=== PATIENT | female | born 1980 | race Caucasian/White ===

== ENCOUNTER 2017-08-18 12:18 | Day surgery (SDC) | payer OTHER, SELFPAY ==
[2017-08-18] VITALS (9 sets, daily range): BP systolic 116–133; BP diastolic 55–83; PULSE 81–112; RESP 14–18; TEMP 36.2–37.1; O2SAT 93–98; BMI 28.2
[2017-08-18] MEDS: Cefazolin 2 GM in 0.9% Normal Saline 100 ML IV (14:15)
[2017-08-18] MEDS: Bupivacaine Mpf 0.5% 30 ML VIAL (14:44)
--- NOTE | 2017-08-18 14:51 | PCM.IMDPSTOP ---
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 ACL graft intact Surgery/Procedure Performed:: Trephination medial meniscus left Description of Surgical Findings:: see op note Estimated Blood Loss: 5cc Specimen's removed: none Type of Anesthesia:: General ASA Class: ASA2 Mod Systematic Disease - Admit VTE Documentation VTE Present on Admission: No VTE Mechan Device Prophylaxis: SCD's, Thigh High PRIMO Hose VTE Pharm Prophylaxis ordered?: Yes
--- NOTE | 2017-08-18 15:29 | OP.PN_ITS ---
Immediate Post-Op Note Date of Procedure: 08/18/17 Primary Surgeon/Physician: Quentin Betancur counter waiter: none Pre-Operative Diagnosis: MMT,possible ACL tear left Post-Operative Diagnosis: Undersurface MMT. ACL graft intact Surgery/Procedure Performed:: Trephination medial meniscus left Description of Surgical Findings:: see op note Estimated Blood Loss: 5cc Specimen's removed: none Type of Anesthesia:: General ASA Class: ASA2 Mod Systematic Disease - Admit VTE Documentation VTE Present on Admission: No VTE Mechan Device Prophylaxis: SCD's, Thigh High PRIMO Hose VTE Pharm Prophylaxis ordered?: Yes
== END 2017-08-18 17:25 | disposition home or self-care (01) ==
LOC: SDC 12:19
PROVIDERS: Family Provider Nurse Practitioner Family; PCP Nurse Practitioner Family; Visit Provider Orthopaedic Surgery
PROC: (CPT 29888; principal; 2017-08-18 13:55)
DX: S83.242A Other tear of medial meniscus, current injury, left knee, initial encounter (principal); S83.92XA Sprain of unspecified site of left knee, initial encounter; W01.0XXA Fall on same level from slipping, tripping and stumbling without subsequent striking against object, initial encounter; Y93.9 Activity, unspecified; Y92.89 Other specified places as the place of occurrence of the external cause; Y99.0 Civilian activity done for income or pay; J45.909 Unspecified asthma, uncomplicated
CPT/HCPCS: 29881; J7120; J2405

== ENCOUNTER → 2023-01-30 | Outpatient (CLI) | payer OTHER, SELFPAY ==
--- NOTE | 2023-01-30 12:32 | RAD_ITS ---
STUDY: X-RAY - PARANASAL SINUSES REASON FOR EXAM: Female, 42 years old. SWELLING TRAUMA TECHNIQUE: 3 view(s) of the paranasal sinuses were obtained. COMPARISON: None. FINDINGS: Normal visualized frontal, maxillary, ethmoidal and sphenoid sinuses. Normal visualized facial bones. The soft tissue structures are unremarkable. RAD/Sinuses min 3 Views IMPRESSION: Normal x-rays of the paranasal sinuses. Electronically Signed: Javon Santos MD at 13:21 EDT ,
== END | disposition home or self-care (01) ==
LOC: RAD 12:25
PROVIDERS: PCP Nurse Practitioner Family; Referring Provider Nurse Practitioner Family; Visit Provider Nurse Practitioner Family
DX: J34.89 Other specified disorders of nose and nasal sinuses (principal); H57.89 Other specified disorders of eye and adnexa
CPT/HCPCS: 70220

== ENCOUNTER → 2023-12-05 | Outpatient (CLI) | payer OTHER, SELFPAY ==
--- NOTE | 2023-12-05 10:24 | RAD_ITS ---
STUDY: X-RAY - LEFT KNEE REASON FOR EXAM: Female, 43 years old. Left knee pain following a twisting injury. TECHNIQUE: 4 view(s) of the knee. COMPARISON: None. FINDINGS: Normal visualized distal femur. There is evidence of prior anterior cruciate ligament repair. Normal proximal tibiofibular articulation. Normal medial femorotibial compartment. Normal lateral femorotibial compartment. Normal patellofemoral articulation. Minimal joint effusion. RAD/Knee 4 or More Views IMPRESSION: Evidence of prior anterior cruciate ligament repair. Minimal joint effusion. Electronically Signed: Javon Santos MD at 10:43 EDT ,
== END | disposition home or self-care (01) ==
LOC: MTRAD 10:18
PROVIDERS: PCP Nurse Practitioner Family; Referring Provider Physician Assistant Surgical; Visit Provider Physician Assistant Surgical
DX: S86.912A Strain of unspecified muscle(s) and tendon(s) at lower leg level, left leg, initial encounter (principal)
CPT/HCPCS: 73564

== ENCOUNTER 2024-04-26 17:30 | Outpatient (RCR) | payer OTHER, SELFPAY ==
--- NOTE | 2024-01-28 11:32 | HP.PTEVAL_ITS ---
Patient's Visit Information Visit Information Visit Information: MARY MCKENZIE is a 43 year old F referred to Physical Therapy by Dr. Charles Montes De Oca MD with a diagnosis of L medial meniscal tear. Date of Evaluation: 01/27/24 Physical Therapist: Tuan Shultz DPT Visit Plan Frequency: 3x /Week Duration: 6 Weeks Plan: 1) Start with ROM progressing end ranges as tolerated. 2) edema control with vaso, may use IFC if needed for pain control. 3) quad/hip strengthening initially in [place] progressing to [place] as tolerated. Subjective Subjective: Pt. is here today for her initial evaluation with diagnosis of L meniscal tear. Pt. reports ~2 months ago she tripped over a wheel at work and felt a pop in her knee. She has a history of L ACL, PCL and meniscal reconstruction as well. Pt. was recommended to trial conservative treatment due to where tear is at. Pt. is no longer using her brace and tolerated working well. She is able to sit a decent amount. She is on restrictions for no twisting, light lifting, and to sit as much as possible. Pt. denies N/T. Pt. has increased pain with walking, stairs, squatting and twisting. Pt. has been compliant. She is icing daily. Pt. is hopeful to reduce symptoms in order to complete all work duties without increase in symptoms. Pain R knee: Pain Intensity (Out of 10): 3 Pain Intensity Range: 2 and 6 Objective Objective: POSTURE: Pt. has slight knee flexion during stance phase, slight increased Wt. shift to R side. PALPATION: pt. has some medial joint line tenderness and posterior aspect as well. NEURO: Normal sensation and normal DTR of BLEs. Pt. is able to rise on heels and toes. ROM: L knee AROM: 0-10-84deg, PROM: 0-5-102deg. MMT: RLE: ankle 5/5 throughout; knee: ext 43.5#, flexion 31.8#; hip: flexion 23.1#, abd 31.8#. LLE: ankle 5/5 throughout; knee: ext 18.9# increase NW, flexion 17.8# increase NW; hip: flexion 28.8#, abd 25.1# GAIT: Pt. ambulates with slight bend L knee during stance phase. Adequate knee flexion during swing. Slight antalgic pattern. STAIRS: step to pattern only with use of 1 HR. Balance/Special Test Scores Lower Extremity Functional Score: 36 Goals Goal 1:: LTG: Pt. to be I with HEP. Goal Time Frame: 4-6 Weeks Goal 2:: STG: Pt. to have increased L knee ROM to 0-0-125deg. Goal Time Frame: 2-4 Weeks Goal 3:: STG: pt. to ambulate with normal gait pattern without increase in L knee pain. Goal Time Frame: 2-4 Weeks Goal 4:: LTG: Pt. to have symmetrical strength between BLEs. Goal Time Frame: 4-6 Weeks Goal 5:: STG: Pt. to have symmetrical girth at mid patella indicating decreased L knee edema. Goal Time Frame: 2-4 Weeks Goal 6:: LTG: Pt. to negotiate steps with reciprocal pattern without use of HR and no increase in L knee pain. Goal Time Frame: 4-6 Weeks Rehabilitation Potential Physical Therapy Diagnosis: Pt. has signs and symptoms consistent with L medial meniscal tear. Pt. has marked subsequent hypomobility, weakness, difficulty with walking and increased pain. Pt. would benefit from PT to address the above limitations progressing back to all recreational and work activities without limitations. Rehabilitation Potential: Good Anticipated Interventions Patient/Client Instruction: Educate patient on: Condition, Plan of Care, Risk Factors and Benefits of Fitness Program For the Purpose of:: To improve self management, To prevent re-injury, To improve ability to perform tasks related to life management and To improve tolerance to ADL's Therapeutic Exercise to Include: Strength training, Power training, Endurance training, Body mechanics, Postural training, Flexibilty training, Gait and locomotor training, Passive ROM and Active ROM For the Purpose of:: To decrease pain, To increase ROM, To improve nutrient delivery to tissue, To increase oxygenation perfusion, To improve muscle performance and motor function, To improve ability to perform ADL's, To increase tolerance to activity/condition/position, To improve performance and independence with ADL's, To decrease level of supervision to perform tasks, To improve gait and locomotor functions, To improve health of tissue, To decrease soft tissue restriction and To increase flexibility/ROM Other electric stimulation: Yes Cryotherapy (ice pack, ice massage): Yes Ultrasound (thermal/non thermal): Yes Vasopneumatic device: Yes For the Purpose of:: To decrease pain, To decrease swelling/inflammation and To improve nutrient delivery to tissue Text: Thank you for the opportunity to evaluate your patient. For Medicare and Medicare HMO plans, please review the plan of care and approve it. It will need to be FAXED BACK to us at [phone] for Medicare purposes. For Medicare only, by signing this I certify the plan of care. Please let me know if there are questions or concerns regarding this plan of care. Physician Signature: Date:
== END 2024-04-26 19:00 | disposition home or self-care (01) ==
LOC: PT 17:30
PROVIDERS: PCP Nurse Practitioner Family; Referring Provider Orthopaedic Surgery Sports Medicine; Visit Provider Orthopaedic Surgery Sports Medicine
DX: S86.912D Strain of unspecified muscle(s) and tendon(s) at lower leg level, left leg, subsequent encounter (principal)
CPT/HCPCS: 97016; 97110; 97161